=== PATIENT | female | born 2000 | race Caucasian/White ===

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

== ENCOUNTER → 2022-02-07 | Outpatient (CLI) | payer MEDICAID | LOC: RAD 15:47 | DX: M25.561 Pain in right knee (principal); M25.562 Pain in left knee ==

== ENCOUNTER → 2022-04-28 | Outpatient (CLI) | payer MEDICAID ==
[2022-04-28 12:32] LABS: BASO # 0.07 K/mm3 (0.02-0.10); EOS # 0.27 K/mm3 (0.04-0.40); EOS % 5.2 % (0.1-4.0); HEMATOCRIT 34.7 % (35.0-45.0); HEMOGLOBIN 10.5 g/dL (12.0-15.0); LYMPH# 1.63 K/mm3 (1.20-3.40); MEAN CELL VOLUME 72 fl (78-95); MEAN CORPUSCULAR HEMOGLOBIN 22 pg (26-32); MEAN CORPUSCULAR HGB CONC 30 g/dL (33-37); MEAN PLATELET VOLUME 9.9 fl (7.4-10.4); MONO # 0.31 K/mm3 (0.10-0.60); NEU # 2.95 K/mm3 (1.40-6.50); PLATELET COUNT 330 K/mm3 (130-400); RED BLOOD COUNT 4.84 M/mm3 (4.10-5.30); RED CELL DISTRIBUTION WIDTH 17.6 % (11.5-14.5); WHITE BLOOD COUNT 5.2 K/mm3 (4.8-10.8)
[2022-04-28 12:40] LABS: ALBUMIN 4.5 g/dL (3.5-5.0); POTASSIUM 3.9 mmol/L (3.5-5.1)
[2022-04-28 12:41] LABS: CALCIUM 9.4 mg/dL (8.3-10.5)
[2022-04-28 12:43] LABS: TOTAL PROTEIN 7.6 g/dL (6.4-8.3)
[2022-04-28 12:44] LABS: TOTAL BILIRUBIN 0.3 mg/dL (0.2-1.2)
== END ==
LOC: LAB 12:02
PROVIDERS: Family Medicine
DX: M25.552 Pain in left hip (principal); K59.09 Other constipation; F32.A Depression, unspecified; E55.9 Vitamin D deficiency, unspecified